=== PATIENT | male | born 1940 | race Caucasian/White ===

== ENCOUNTER 2016-12-24 11:34 | Observation (INO) | payer OTHER ==
[~2016-12-24] VITALS: Ht 167.6 cm; Wt 58.9 kg
--- NOTE | ~2016-12-24 | CR63 ---
[facility] A Service of [facility] RADIOLOGY TEXT RESULTS PATIENT: JANIS GALEANO LOCATION: [facility] : 42 UNIT #: [id number] AGE: [address]: Etienne Onofre MD SEX: M ORDER DR: [id number] [facility] [address]. [place], [place] [address] [id number] MR#: [id number] Acc #: [id number] NAME: JANIS GALEANO : 1940 SEX: M STUDY DATE/TIME: 12/24/2016 14:58 UNIT: [facility] ROOM: [facility] STUDY DESCRIPTION: CR Chest 2 View Attending Physician: Selene Asencio M.D. Ordering Physician: Selene Asencio M.D. Primary Care Physician: Primary Care Physician No MEDICAL IMAGING REPORT This report is preliminary unless electronic signature is present EXAM PA and lateral chest, 12/24/2016 HISTORY Weight loss, low blood pressure, dizziness and blurred vision, mild congestion. Low blood pressure last night. Weight loss over the past 3 weeks. No known trauma. History of tongue cancer. COMPARISON PA and lateral chest radiograph, 08/14/2016. FINDINGS The lungs are free of acute air space disease. Benign calcified granuloma is present in the right lower lobe. Heart size is normal. No pleural effusion or pneumothorax is identified. Lungs appear mildly hyperinflated which indicate underlying emphysematous changes, which can be seen to better advantage on the CT abdomen lung windows of 08/21/2016. IMPRESSION 1. No acute chest findings. 2. Emphysematous changes. 3. Benign calcified granuloma in the right lower lobe. Dictated by... Dinorah Kramer M.D. THIS IS AN ELECTRONICALLY VERIFIED REPORT Dinorah Kramer M.D. at 12/25/2016 9:54 AM Satinder [facility] A Service of [facility] RADIOLOGY TEXT RESULTS PATIENT: JANIS GALEANO LOCATION: [facility] : 42 UNIT #: [id number] AGE: [address]: Etienne Onofre MD SEX: M ORDER DR: TD: 12/24/2016 17:00 JOB #: [id number] MEDICAL IMAGING REPORT Page 1 of 1 COPY
--- NOTE | ~2016-12-24 | EKG ---
PATIENT: JANIS GALEANO UNIT #: [id number] Ventricular Rate: 64 BPM Atrial Rate: 64 BPM P-R Interval: 154 ms QRS Duration: 78 ms Q-T Interval: 394 ms QTC Calculation(Bezet): 406 ms P [place]: 71 degrees Calculated R [place]: 94 degrees Calculated T [place]: 73 degrees Diagnosis Line: Normal sinus rhythm Diagnosis Line: Rightward axis Diagnosis Line: Borderline ECG Diagnosis Line: No previous ECGs available Diagnosis Line: Confirmed by INDERJIT TOVAR MD ([id number]) on 12/24/2016 Diagnosis Line: 6:05:18 PM INTERPRETING MD: LA RANDLE
--- NOTE | ~2016-12-24 | EKG ---
PATIENT: JANIS GALEANO UNIT #: [id number] Ventricular Rate: 57 BPM Atrial Rate: 57 BPM P-R Interval: 136 ms QRS Duration: 74 ms Q-T Interval: 432 ms QTC Calculation(Bezet): 420 ms P [place]: 57 degrees Calculated R [place]: 79 degrees Calculated T [place]: 70 degrees Diagnosis Line: Sinus bradycardia Diagnosis Line: Otherwise normal ECG Diagnosis Line: When compared with ECG of 24-DEC-2016 12:08, Diagnosis Line: No significant change was found Diagnosis Line: Confirmed by INDERJIT TOVAR MD ([id number]) on 12/25/2016 Diagnosis Line: 10:05:59 PM INTERPRETING MD: LA RANDLE
--- NOTE | ~2016-12-24 | CO ---
Unit #: [id number] #: [id number] Patient: JANIS GALEANO [id number] [address] [place], [place] [address] [id number] I MR#: [id number] NAME: JANIS GALEANO ROOM: 549 Age: 76 Sex: M Admission Date: 12/24/2016 : 1940 Attending Physician: Etienne Onofre M.D. Primary Care Physician: No Primary Care Physician Consultation Date: 12/25/2016 CONSULTATION REPORT REASON FOR CONSULTATION Lightheadedness, weakness, bradycardia and hypotension. HISTORY OF PRESENT ILLNESS This is a 76-year-old white male, who has had a known [place] back in 2014 when he was living in [place]. According to the information, he appeared to had a resuscitated arrest. He had 3 stents placed in after that episode. He has moved down to [place]. He has been here for about a year. He does not follow a demand planning analyst. He does follow Dr. Serna [facility] PCP. He has hypertension and hyperlipidemia. He had tongue malignancy, he had surgery, but no radiation. He has known abdominal aortic aneurysm, 4.[address] Serna is monitoring. He is continuing to smoke, has occasional alcohol use. He presented to the emergency room after he has had about a week long history of weakness and lightheadedness. He says it seems to be worsening. He denies any chest pain or palpitations. He has not had any syncope. He denies increased lower extremity edema. No shortness of breath. No nausea, vomiting, diarrhea, or abdominal pain. He reports that he has lost 35 pounds over the last 2 years. In the emergency room, the patient was found to have acute kidney injury versus chronic kidney disease. According to the patient, he has been told that his kidneys are acting up. Dr. Serna had him to have renal ultrasound. The patient also had a blood pressure that was as low as 88/62, and his heart rate was in his 50s and low 60s. The patient does take Toprol-XL 100 mg daily. He is on lisinopril 40 daily. The patient was started on IV fluids. His cardiac enzymes have remained negative. His EKG does not show anything acute. He will be admitted for further evaluation and management. Cardiology was consulted to assist with evaluation and management. PAST MEDICAL HISTORY 1. Hypertension. 2. Hyperlipidemia. 3. History of tongue malignancy, status post surgery. 4. In 2014, had a myocardial infarction in [place] with resuscitated arrest, status post PCI and stents. Does not follow Cardiology. 5. History of abdominal aortic aneurysm, 4.[address] 08/24/2016. 6. Nicotine abuse. 7. Occasional alcohol abuse. PAST SURGICAL HISTORY 1. Inguinal hernia repair. 2. Status post PCI and stents in 2014, details unavailable. Unit #: [id number] #: [id number] Patient: JANIS GALEANO 3. Colonoscopy 2 to 3 years ago, no records. HOME MEDICATIONS Toprol-XL 100 mg p.o. daily, Prinivil 40 mg p.o. daily, rosuvastatin 20 mg p.o. daily, lansoprazole 30 mg p.o. daily, Aspirin 162mg (2-81mg tablets) p.o. daily. ALLERGIES Iodine and morphine. SOCIAL HISTORY The patient currently has a home here in [place] and is in the process of closing on selling it this week. He is moving back to [place]. He continues to smoke a few cigarettes a day. He has been smoking up to 3/4 of a pack a day. He reports occasional alcohol use, but nothing abusive. He denies any illicit drug abuse. FAMILY HISTORY His mother had a stroke and his dad of a myocardial infarction at the age of 55. REVIEW OF SYSTEMS See details in HPI. PHYSICAL EXAMINATION GENERAL: Mr. Galeano is a 76-year-old white male, in no acute respiratory distress. He is awake, alert, and oriented. VITAL SIGNS: Blood pressure this morning is 141/68, heart rate 56, respirations 18, temperature 97.7, O2 saturations 100% on room air. NECK: Trachea midline. No thyromegaly or lymphadenopathy. Normal carotid upstrokes. No jugular venous distention. HEART: S1, S2. Regular rate and rhythm. No clicks, murmurs, or rubs. LUNGS: Diminished, otherwise clear. ABDOMEN: Flat, soft, nontender. Positive bowel sounds present. EXTREMITIES: Pedal pulses are palpable. No pedal edema. DIAGNOSTIC STUDIES LABORATORY RESULTS: Glucose is 80, BUN 34, creatinine 1.4, eGFR is 49.2. On admission, the patient's BUN was 39 with a creatinine of 2.1. Sodium 138, potassium 4.9, chloride is 108, CO2 of 22, calcium is 8.3, phosphorus is 3.0, magnesium is 2.1. Total protein 6.4, albumin 3.4, bilirubin total 0.6, AST 32, ALT 26, and alkaline phosphatase is 96. Lactic acid 1.1. TSH is 1.80. WBC 6.4, hemoglobin 12.0, hematocrit 35.3, and platelets is 173. Initial cardiac enzymes; CK-MB less than 1.0, troponin less than 0.05; CK-MB 0.05, latest troponin is less than 0.03. TSH is 1.80. INR is 1.0. Urinalysis is unremarkable. Blood and urine cultures are pending. IMAGING STUDIES: Chest x-ray shows nothing acute, emphysematous changes. EKG shows normal sinus rhythm with ventricular rate of 64 beats per minute, rightward axis deviation, slow R-wave progression, nondiagnostic Q-waves in inferior leads. IMPRESSION 1. Hypotension. 2. Acute kidney injury. 3. History of coronary artery disease, previous myocardial infarction, and status post stents back in 2014. Unit #: [id number] #: [id number] Patient: JANIS GALEANO 4. History of abdominal aortic aneurysm, 4.2, x 5.0, last CT 08/24/2016. 5. History of hyperlipidemia. 6. Nicotine abuse. 7. Occasional alcohol use. PLAN 1. Cardiology consult to assist with evaluation and management. The patient's Toprol and lisinopril had been held since his admission. His blood pressure is improving today. We will continue to stop the lisinopril and then, we will instruct to cut his Toprol-XL to half, and that would be 50 mg instead of 100 mg daily. The patient's kidney function is improving. He has been on IV fluids at 75 mL an hour. On exam, there are no signs or symptoms of acute congestive heart failure or unstable angina. 2. Dr. Capps had a long discussion with the patient about smoking cessation. Smoking cessation information was provided to the patient. Dr. Capps also discussed with the patient the need to have a cardiac workup such as a stress test. The patient states he needs to go home and do some legal work on closing the wound on his home, so he would prefer to do it as an outpatient. 3. Instructed the patient to follow up with Dr. aCpps on this 12/29/2016 at 3:[address] Capps will evaluate his blood pressure status and schedule the stress test then. The patient states he would come in to see him on Sunday. 4. Obtain a fasting lipid profile to his labs. Also continue the patient on his aspirin. 5. The patient will need a 2D echo to evaluate LV function and valves. We will try to convince the patient to have that done before he leaves, but if it is necessary, we will also do that as an outpatient. He has no signs or symptoms on exam of acute congestive heart failure. 6. Further recommendations pending per Dr. Capps. Thank you very much for allowing to assist in care. Dictated by... Carlos LacyPGabeRJuliana. for Ziggy Capps M.D. LORI/jeana TD: 12/26/2016 05:23 JOB #: [id number] CONSULTATION REPORT Page 1 of 1 X Remedios Lugo APRN CONSULTATION REPORT
--- NOTE | ~2016-12-24 | DS ---
Unit #: [id number] #: [id number] Patient: JANIS GALEANO [id number] [address] [place], [place] [address] [id number] MR#: [id number] NAME: JANIS GALEANO ROOM: 549 Age: 76 Sex: M Admission Date: 12/24/2016 : 1940 Discharge Date: 12/25/2016 Attending Physician: Etienne Onofre M.D. Primary Care Physician: No Primary Care Physician DISCHARGE SUMMARY PRIMARY DIAGNOSIS Hypotension, multifactorial, secondary to medications and dehydration. SECONDARY DIAGNOSES 1. Acute kidney injury. 2. Likely emphysema, new diagnosis. 3. Likely prostatic hypertrophy, new diagnosis. 4. Infrarenal abdominal aortic aneurysm 5 cm diagnosed in August [address] angiogram at [facility]. 5. Right renal artery dilation of 8 mm diagnosed at [facility] in August. 6. Coronary artery disease. 7. History of hypertension. 8. Anemia, stable. HOSPITAL COURSE Patient was placed in observation status with blood pressure of 88 systolic. He was taken off his lisinopril and hydrated. His blood pressures improved and his creatinine improved from 2.1 to 1.4. His thyroid studies, magnesium, phosphorus, TSH lactic acid, liver function studies and other electrolytes were all within normal limits. His hemoglobin was stable between 12 and 12.8. His chest x-ray was suggestive of emphysema and his postvoid residual bladder scan showed 216 mL of urine after voiding, suggesting of possible prostatic disease. At this time, we will not be starting medication for this as he did come in with hypotension and dizziness which would be a symptom that we could worsen by starting medications. Will defer the patient to see his primary care physician and possibly be referred for further evaluation with the urologist depending on his discussions with PCP. The patient was seen in consultation with Dr. Capps with cardiology who plans to see the patient back in his office on December 29, at 3 p.m. The patient was very insistent upon leaving the hospital the morning of 12/25, in fact, was suggesting he would leave against medical advice if he was not seen early in the morning. He is being discharged at 9:20 in the morning at his insistence. Renal ultrasound had not been completed and, with his creatinine improving, that will be discontinued as the patient refuses to stay in the hospital any longer. DISCHARGE DISPOSITION To home. DISCHARGE STATUS Stable. Unit #: [id number] #: [id number] Patient: JANIS GALEANO DISCHARGE ACTIVITY Ad nayely. DISCHARGE DIET Low sodium heart healthy diet. DISCHARGE FOLLOWUP With Dr. Capps on Sunday. Follow with his PCP, Dr. Serna, in one week. DISCHARGE MEDICATIONS 1. Toprol XL 50 mg p.o. once daily. 2. Crestor 20 mg p.o. once daily. 3. Aspirin 120 mg p.o. daily. 4. Lansoprazole 30 mg p.o. daily. Dictated by... Etienne Onofre M.D. VIDAL/arsenio TD: 12/27/2016 10:49 JOB #: [id number] DISCHARGE SUMMARY Page 1 of 1 X Etienne Onofre MD X DISCHARGE SUMMARY
--- NOTE | ~2016-12-24 | HP ---
Unit #: [id number] #: [id number] Patient: JANIS GALEANO [id number] [address] [place], [place] [address] [id number] MR#: [id number] NAME: JANIS GALEANO ROOM: 549 Age: 76 Sex: M Admission Date: 12/24/2016 : 1940 Attending Physician: Selene Asencio M.D. HISTORY AND PHYSICAL CHIEF COMPLAINT Low blood pressure. HISTORY OF PRESENT ILLNESS The patient is a 76-year-old male with a past medical history of coronary artery disease, hypertension, hyperlipidemia, and tongue malignancy, who presented to the emergency department for evaluation of the above. The patient states that he has been feeling intermittently lightheaded for the past week. He states that it is worse with position change. He denies any fever, no cough or cold symptoms, and no chest pain or difficulty breathing. He denies any vomiting. He states that his appetite has been good. He did have some diarrhea, but that resolved about a month ago. He denies any urinary symptoms. He states that he has lost about 35 pounds over the past year. Today, he checked his blood pressure and noted that it was 90 systolic. He presented to the emergency department for further evaluation. In the emergency department, initial pulse and blood pressure were 68 and 110/68, respectively. Laboratory notable for BUN and creatinine of 39 and 2.1, respectively. Urinalysis and chest x-ray are both pending at the time of this dictation. EKG showed normal sinus rhythm with a rate of 64 beats per minute. He was given one liter of normal saline, and he is being admitted to [facility] for evaluation and further treatment. PAST MEDICAL HISTORY 1. Hospitalized in another state ([place]) in approximately 2014. It sounds like the patient was a resuscitated arrest at that time, and that he had a myocardial infarction. He had some stents placed (no records). 2. Coronary artery disease, status post cardiac stent placement, not followed by Cardiology currently. 3. Hypertension. 4. Hyperlipidemia. 5. Tongue malignancy, status post surgery. The patient denies any radiation or chemotherapy. PAST SURGICAL HISTORY 1. Cardiac catheterization. 2. Cardiac stent placement. 3. Hernia repair. 4. Tongue surgery. 5. Colonoscopy two to three years ago (no records). Unit #: [id number] #: [id number] Patient: JANIS GALEANO SOCIAL HISTORY The patient lives alone. He moved to [place] about a year ago. He states that he smokes a few cigarettes daily. He reports occasional alcohol use. He typically walks without assistance. FAMILY HISTORY Notable for his mother having a cerebrovascular accident, and his dad of a myocardial infarction at the age of 55. ALLERGIES Penicillin, iodine and morphine. HOME MEDICATIONS 1. Metoprolol. 2. Lisinopril. 3. Rosuvastatin. 4. Lansoprazole. 5. Aspirin. Home medications will need to be reviewed and verified. REVIEW OF SYSTEMS A complete review of systems is negative except as indicated in the HPI. The patient states that he has seen his primary care physician regarding weight loss. PHYSICAL EXAMINATION VITAL SIGNS: Temperature is 97.7, pulse 68, respirations 16, blood pressure 110/68, most recently 88/62, and oxygen saturation is 99% on room air. GENERAL: Patient is a male who is awake, alert, and in no acute distress. HEENT: Head is atraumatic. Mucous membranes are moist. NECK: Supple. Trachea is midline. CARDIOVASCULAR: Regular rate and rhythm. LUNGS: Clear to auscultation bilaterally with no increased work of breathing. ABDOMEN: Soft and nontender with bowel sounds present in all four quadrants. EXTREMITIES: Nontender with no pedal edema. NEUROLOGIC: Patient is awake and alert. He follows commands. PSYCHIATRIC: Mood and affect are normal. Patient is cooperative. SKIN: Skin of examined areas is warm and dry. DIAGNOSTIC STUDIES LABORATORY: Complete blood count notable for hemoglobin and hematocrit of 12.8 and 37.6, respectively. Troponin is less than 0.05. INR is 1. Lactic acid 1.1. Comprehensive metabolic panel notable for glucose of 129, BUN and creatinine 39 and 2.1, and respectively, alkaline phosphatase is 102. ASSESSMENT The patient is a 76-year-old male with: 1. Hypotension. The patient states that his systolic blood pressure was 90 at home. The lowest here has been 88/62. The patient does not have any symptoms of infection. Chest x-ray and urinalysis have not been done. Unit #: [id number] #: [id number] Patient: JANIS GALEANO 2. Acute kidney injury versus chronic kidney disease. The patient's creatinine is 2.1 with no baseline for comparison. He is on lisinopril which could be contributing. 3. Weight loss. The patient has lost about 35 pounds over the past year. He had a colonoscopy two to three years ago (no records). He is currently seeing his primary care physician regarding this issue. 4. History of coronary artery disease, status post stent placement. 5. Hypertension. 6. Tongue malignancy, status post excision. 7. Tobacco abuse. PLAN 1. Admit to intermediate level for observation. 2. Normal saline at 75 mL/hour. 3. Healthy heart diet if passes bedside swallow. 4. Fall precautions. 5. Bedrest. 6. PT/OT to evaluate and treat. 7. Monitor blood pressure closely. 8. Blood cultures x2. 9. Urinalysis with culture and sensitivity. 10. Chest x-ray, PA and lateral. 11. Serial cardiac enzymes. 12. A 2D echo. 13. Orthostatics every shift. 14. Strict I/Os. 15. Bladder scan, check postvoid residual. 16. Check CPK. 17. Urine sodium, creatinine, and eosinophils. 18. Renal ultrasound for further evaluation of acute kidney injury. 19. Check magnesium and phosphorus levels. 20. TSH. 21. Repeat labs in the morning including magnesium and phosphorus. 22. Additional workup and consultants based on above. 23. SCDs. Dictated by Doretha Pineda/darcie TD: 12/24/2016 19:11 JOB #: [id number] HISTORY AND PHYSICAL Page 1 of 1 X Selene Asencio MD X HISTORY AND PHYSICAL
[2016-12-24 12:25] LABS: BASOPHIL# 0.1 X10e3 (0-0.3); BASOPHIL% 1.5 % (0-2.5); EOSINOPHIL# 0.4 X10e3 (0-0.7); EOSINOPHIL% 4.4 % (0.0-7.0); HEMATOCRIT 37.6 % (38.0-50.0); HEMOGLOBIN 12.8 gm/dL (13.0-16.0); LYMPHOCYTE# 1.9 X10e3 (1.0-3.5); LYMPHOCYTE% 24.3 % (17.0-45.0); MEAN CELL VOLUME 94.3 FL (83-96); MEAN CORPUSCULAR HEMOGLOBIN 32.2 PG (28-34); MEAN CORPUSCULAR HGB CONC 34.2 g/dL (30-36); MEAN PLATELET VOLUME 8.5 FL (6.5-11.5); MONOCYTE# 0.9 X10e3 (0-1.0); MONOCYTE% 11.6 % (3.0-12.0); NEUTROPHIL# 4.7 X10e3 (1.5-7.1); NEUTROPHIL% 58.2 % (40-75); PLATELET COUNT 217 X10e3 (140-420); RED BLOOD COUNT 3.99 X10e (3.90-5.60); RED CELL DISTRIBUTION WIDTH 13.1 % (11.0-15.5)
[2016-12-24 12:28] LABS: DIFF IND NO
[2016-12-24 12:30] LABS: POC - CKMB <1.0 ng/mL (0.0-7.9); POC - TROPONIN <0.05 ng/mL (<=0.05)
[2016-12-24 12:39] LABS: PARTIAL THROMBOPLASTIN TIME 27.4 SECONDS (23.5-31.3); PROTHROMBIN TIME (PATIENT) 10.8 SECONDS (10.0-11.7)
[2016-12-24 12:51] LABS: ALBUMIN SERUM 3.8 g/dL (3.5-5.0); BILIRUBIN, DIRECT 0.1 mg/dL (0.0-0.2); BILIRUBIN,INDIRECT 0.6 mg/dL (0.0-0.9); BILIRUBIN,TOTAL 0.7 mg/dL (0.2-2.0); BUN/CREATININE RATIO 18.57; CALCIUM SERUM 8.8 mg/dL (8.4-10.2); CREATININE SERUM 2.1 mg/dL (0.6-1.4); GLOM FILT RATE Estimated 30.1 mL/min (>60); POTASSIUM 4.7 mmol/L (3.5-5.1); PROTEIN TOTAL SERUM 7.6 g/dL (6.0-8.3)
[2016-12-24 14:33] LABS: POC - CKMB <1.0 ng/mL (0.0-7.9); POC - TROPONIN <0.05 ng/mL (<=0.05)
[2016-12-24 14:57] LABS: URINE SOURCE CLEAN CATCH
[2016-12-24 15:03] LABS: URINE APPEARANCE CLEAR; URINE BILIRUBIN NEG (NEG); URINE BLOOD NEG (NEG); URINE COLOR YELLOW; URINE GLUCOSE NEG (NEG); URINE KETONE NEG (NEG); URINE LEUKOCYTE ESTERASE NEG (NEG); URINE NITRATE NEG (NEG); URINE PROTEIN NEG (NEG); URINE SPECIFIC GRAVITY 1.005 (1.003-1.035); URINE UROBILINOGEN 0.2 MG/DL (NEG)
[2016-12-24] MEDS ORDERED: PRINIVIL40 MG PO (15:05)
[2016-12-24] MEDS ORDERED: TOPROL XL100 MG PO (15:05)
[2016-12-24] MEDS ORDERED: LANSOPRAZOLE30 M2 PO (15:06)
[2016-12-24] MEDS ORDERED: ROSUVASTATIN CA20 MG PO (15:06)
[2016-12-24] MEDS ORDERED: ASPIRIN PO (15:08)
[2016-12-24 15:12] LABS: CREATININE,RANDOM URINE 40 mg/dL; SODIUM URINE RANDOM 30 mmol/L
[2016-12-24 15:14] LABS: MAGNESIUM 2.2 mg/dL (1.6-3.0); PHOSPHOROUS 3.3 mg/dL (2.5-4.6)
[2016-12-24 22:10] LABS: %MB 1.3 % (0.0-4.0); MB 1.1 ng/ml
[2016-12-25 02:32] LABS: BASOPHIL# 0.1 X10e3 (0-0.3); BASOPHIL% 1.4 % (0-2.5); DIFF IND NO; EOSINOPHIL# 0.3 X10e3 (0-0.7); EOSINOPHIL% 5.2 % (0.0-7.0); HEMATOCRIT 35.3 % (38.0-50.0); LYMPHOCYTE# 1.8 X10e3 (1.0-3.5); LYMPHOCYTE% 28.1 % (17.0-45.0); MEAN CELL VOLUME 94.2 FL (83-96); MEAN PLATELET VOLUME 8.4 FL (6.5-11.5); MONOCYTE# 0.8 X10e3 (0-1.0); MONOCYTE% 12.4 % (3.0-12.0); NEUTROPHIL# 3.4 X10e3 (1.5-7.1); NEUTROPHIL% 52.9 % (40-75); PLATELET COUNT 173 X10e3 (140-420); RED BLOOD COUNT 3.75 X10e (3.90-5.60); RED CELL DISTRIBUTION WIDTH 12.8 % (11.0-15.5); WHITE BLOOD COUNT 6.4 X10e3 (4.0-10.5)
[2016-12-25 03:00] LABS: ALBUMIN SERUM 3.4 g/dL (3.5-5.0); BILIRUBIN,TOTAL 0.6 mg/dL (0.2-2.0); BUN/CREATININE RATIO 24.28; CALCIUM SERUM 8.3 mg/dL (8.4-10.2); CREATININE SERUM 1.4 mg/dL (0.6-1.4); GLOM FILT RATE Estimated 49.2 mL/min (>60); MAGNESIUM 2.1 mg/dL (1.6-3.0); POTASSIUM 4.9 mmol/L (3.5-5.1); PROTEIN TOTAL SERUM 6.4 g/dL (6.0-8.3)
[2016-12-25 03:20] LABS: %MB 1.4 % (0.0-4.0); MB 1.1 ng/ml
[2016-12-25] MEDS ORDERED: TOPROL XL50 MG PO (09:43)
== END 2016-12-25 10:00 | disposition left against medical advice (07) ==
LOC: CED 11:34 → C5B 14:10 → CED 15:31 → C5B 15:31
PROVIDERS: Emergency Medicine; Family Medicine
DX: I95.9 Hypotension, unspecified (principal); E86.0 Dehydration; N17.9 Acute kidney failure, unspecified; I25.10 Atherosclerotic heart disease of native coronary artery without angina pectoris; I10 Essential (primary) hypertension; D64.9 Anemia, unspecified; I71.4 Abdominal aortic aneurysm, without rupture; I72.2 Aneurysm of renal artery; E78.5 Hyperlipidemia, unspecified; I25.2 Old myocardial infarction; F17.210 Nicotine dependence, cigarettes, uncomplicated; R63.4 Abnormal weight loss; Z68.20 Body mass index [BMI] 20.0-20.9, adult; Z85.810 Personal history of malignant neoplasm of tongue; Z88.0 Allergy status to penicillin; Z88.5 Allergy status to narcotic agent; Z91.041 Radiographic dye allergy status; Z79.82 Long term (current) use of aspirin; Z79.899 Other long term (current) drug therapy; Z95.5 Presence of coronary angioplasty implant and graft; Z98.890 Other specified postprocedural states
CPT/HCPCS: 36415; 71020; 80048; 80053; 80076; 81003; 82550; 82553; 82570; 83605; 83735; 84100; 84300; 84443; 84484; 85025; 85610; 85730; 87040; 87086; 89190; 93005; 94760; 96360; 99285; G0378